=== PATIENT | female | born 1930 | race Caucasian/White ===

== ENCOUNTER 2017-03-08 20:44 | Inpatient (IN) | payer MEDICARE, OTHER ==
[~2017-03-08] VITALS: Ht 165.1 cm; Wt 78.0 kg
[~2017-03-08 20:44] MED LIST: BIMA2.5D5 EACHEYE; CLOP75TA2 PO; FLUO10TA PO; FURO40TA5 PO; LORA0.5T PO; LOSA25TA13 PO; METF500T4 PO; MINO2.5T PO; SIMV80TA5 PO; SPIR25TA4 PO; SULF1TAB48 PO; TRAZ-144 PO
--- NOTE | 2017-03-08 20:44 | NUR ---
TO BED 1 BIB PARAMEDICS C/O POSSIBLE DRUG OVERDOSE. PT WAS GIVEN NARCAN BY EMS INVENTORY CONTROL SUPERVISOR. PT CONFUSED AAOX2 NO ACUTE DISTRESS NOTED, RESP EVEN AND UNLABORED. PLACE PT ON CARDIAC MONITORING, CONTINUOUS POX, O2@2L/NC. PENDING ER MD CAPONE.
[2017-03-08] MEDS ORDERED: IV NS 0.9% 500 ML BAG IV ONE (21:00)
[2017-03-08] MEDS ORDERED: ONDANSETRON HCL/PF 4 MG/2 ML VIAL ONE ×2 (21:03→21:25)
--- NOTE | 2017-03-08 21:06 | NUR ---
SKIN INSTALLER AT BEDSIDE FOR BLOOD DRAW.
[2017-03-08 21:16] LABS: BASOPHILS % (AUTO) 0.2 % (0.0-2.0); EOSINOPHILS # (AUTO) 0.1 /CMM (0.0-0.7); EOSINOPHILS % (AUTO) 0.8 % (0.0-6.0); HEMATOCRIT 34 % (33-45); HEMOGLOBIN 11.4 g/dL (11.5-14.8); LYMPHOCYTES # (AUTO) 1.5 /CMM (0.8-4.8); LYMPHOCYTES % (AUTO) 16.4 % (20.0-44.0); MEAN CORPUSCULAR HEMOGLOBIN 30 PG (26.0-33.0); MEAN CORPUSCULAR HGB CONC 34 g/dl (31.0-36.0); MEAN CORPUSCULAR VOLUME 89 fL (82-100); MONOCYTES # (AUTO) 0.7 /CMM (0.1-1.30); NEUTROPHILS # (AUTO) 6.7 /CMM (1.8-8.9); NEUTROPHILS % (AUTO) 74.6 % (43.0-81.0); PLATELET COUNT (AUTO) 248 /CMM (150-450); RDW COEFFICIENT OF VARIATION 14.9 (11.5-15.0)
--- NOTE | 2017-03-08 21:26 | NUR ---
NOTED PT VOMITING, ER MD MADE AWARE WITH ORDERS RECEIVED. WILL CARRY OUT ORDERS.
--- NOTE | 2017-03-08 21:29 | NUR ---
PT MEDICATED BY RN PER ER MD ORDER.
[2017-03-08 21:30] LABS: CALCIUM, SERUM 10.2 mg/dL (8.5-10.1); CARBON DIOXIDE 22 mmol/L (21-32); CHLORIDE 105 mmol/L (98-107); CREATININE 1.9 mg/dL (0.6-1.3); GLUCOSE 235 mg/dL (74-106); INR 1.06 (0.87-1.13); POTASSIUM 4.7 mmol/L (3.5-5.1); SODIUM SERUM 139 mmol/L (136-145); UREA NITROGEN, BLOOD 62 mg/dL (7-18)
[2017-03-08] MEDS ORDERED: ONDANSETRON HCL/PF - ER 4 MG/2 ML VIAL IV ONE ×2 (21:30)
--- NOTE | 2017-03-08 21:30 | NUR ---
PT TRANSPORTED TO RADIOLOGY FOR CT HEAD.
[2017-03-08 21:35] LABS: ALANINE AMINOTRANSFERASE 10 U/L (12-78); ALBUMIN 3.5 g/dL (3.4-5.0); ALKALINE PHOSPHATASE 86 U/L (46-116); ASPARTATE AMINOTRANSFERASE 11 U/L (15-37); BILIRUBIN,DIRECT 0.1 mg/dL (0.0-0.2); BILIRUBIN,TOTAL 0.3 mg/dL (0.2-1.0); TOTAL PROTEIN, SERUM 7.5 g/dL (6.4-8.2)
--- NOTE | 2017-03-08 21:41 | NUR ---
PT BACK FROM RADIOLOGY. PENDING CT HEAD RESULT.
[2017-03-08 22:01] LABS: TROPONIN I < 0.017 ng/mL (0.00-0.056)
--- NOTE | 2017-03-08 22:30 | NUR ---
CALLED [employer]UNDR[employer] W[employer]ER FOR TELE BED
--- NOTE | 2017-03-08 22:32 | NUR ---
TELE 322-2
[2017-03-08 22:38] LABS: APPEARANCE,URINE SL CLOUDY (CLEAR); BILIRUBIN,URINE NEGATIVE (NEGATIVE); BLOOD, URINE NEGATIVE Ery/uL (NEGATIVE); COLOR,URINE YELLOW (YELLOW); KETONES,URINE NEGATIVE (NEGATIVE); LEUKOCYTE ESTERASE ,URINE 1+ (NEGATIVE); NITRITE, URINE NEGATIVE (NEGATIVE); PROTEIN,URINE NEGATIVE (NEGATIVE); UGLUCOSE NEGATIVE (NEGATIVE); UROBILINOGEN,URINE 0.2 EU/dL (0.2)
[2017-03-08 22:45] LABS: BACTERIA,URINE Moderate /HPF (None Seen); RBC,URINE NONE SEEN /HPF (0-2); SQUAMOUS EPITHELIAL CELL,UR Few /HPF (None Seen)
--- NOTE | 2017-03-08 22:53 | NUR ---
REPORT CALLED TO ADULT LIVE IN [facility]. PENDING HOSPITAL ADMISSION.
[2017-03-08 22:54] LABS: THYROID STIMULATING HORMONE 5.907 uIU/mL (0.358-3.74)
--- NOTE | 2017-03-08 23:20 | NUR ---
TELE/RN RECEIVE PATIENT FROM [facility]. [facility] ACCOMPANIED BY FAMILY MEMBERS. PATIENT IS SO LETHARGIC, NON VERBALLY RESPONSIVE, BUT ABLE TO OPEN EYES , O2 SAT 77-83 ON 2 L OF O2, APPLIED SIMPLE MASK AT 7L O2 WITH SAT 98%. PATIENT UNABLE TO GIVE HISTORY DUE TO CONDITION. SON AND DAUGHTER IN LAW PROVIDED PERTINENT INFORMATIONS. PLAN OF CARE DISCUSSED WITH THE FAMILY MEMBERS, VERBALIZED UNDERSTANDING AND AGREEMENT. CLEANED PATIENT, PHYSICAL ASSESSMENT WAS DONE, PHOTOS TAKEN. MADE COMFORTABLE. WILL MONITOR CLOSELY.
[2017-03-08 23:25] VITALS: BP 126/68
[2017-03-09] VITALS (7 sets, daily range): BP systolic 87–149; BP diastolic 46–83
--- NOTE | 2017-03-09 00:33 | NUR ---
TELE/RN CREDIT RATING INSPECTOR NEFTALY IS HERE, INFORMED HER ABOUT PATIENT CONDITION AT THIS TIME, ( NOT VERBALLY RESPONSIVE, WOULD SOMETIMES OPENS EYES, O2 SAT 77-83% ON 2L O2, AND PUT HER AT 7L SIMPLE MASK, WITH O2 SAT 98%). PER NEFTALY, SHE WILL SEE HER.
--- NOTE | 2017-03-09 00:52 | NUR ---
TELE/PRISCILLA HIGGINBOTHAM NP, AT BEDSIDE. ORDERED, STAT ABG AND CONTINUOUS PULSE OX. CARRIED OUT.
[2017-03-09] MEDS ORDERED: IPRATROPIUM NEB FS 0.5 MG/2.5 ML AMPUL.NEB NEB PRN (01:00)
[2017-03-09] MEDS ORDERED: DEXTROSE 50%-WATER 50 ML DISP.SYRIN IV PRN (01:00)
[2017-03-09] MEDS ORDERED: ALBUTEROL FS 2.5 MG/0.5 ML VIAL.NEB NEB PRN (01:00)
[2017-03-09 01:14] LABS: ABG BASE EXCESS -2.9 mmol/L; ABG OXYGEN SATURATION 98.6 % (92.0-98.5); ABG PCO2 46.1 mmHg (35.0-45.0); ABG PH 7.321 (7.350-7.450); ABG PO2 230.5 mmHg (75.0-100.0); AaDO2 37.9 mmHg; COHb 0.3 % (0.5-1.5); MetHb 0.5 % (0.0-1.5); O2Hb 97.8 % (94.0-97.0); SITE, ABG Right Radial; VENT MODE, BG simple mask
[2017-03-09] MEDS ORDERED: CEFTRIAXONE 1 G VIAL ONE (01:51)
[2017-03-09] MEDS: IV NS 0.9% 1,000 ML IV PRN ×2 (01:58→18:32)
[2017-03-09] MEDS: CEFTRIAXONE 1 G in IV D5W 50 ML IV SCH (01:59)
--- NOTE | 2017-03-09 06:08 | NUR ---
TELE/SNACK STEWARD RN, ED, CAME TO ASSESS THE PATIENT PER THE CHARGE NURSE REQUEST. DURING ASSESSMENT, PATIENT BECAME MORE ALERT AND RESPONSIVE, AND SPOKE FOR THE FIRST TIME SINCE ADMISSION. WILL CONTINUE TO MONITOR.
--- NOTE | 2017-03-09 06:54 | NUR ---
TELE/RN SLEEPING, MORE RESPONSIVE, NO DISTRESS NOTED, CALL LIGHT IN REACH. WILL CONTINUE TO MONITOR.
--- NOTE | 2017-03-09 07:15 | NUR ---
RN INITIAL NOTES REPORT RECEIVED AT THE BEDSIDE. PATIENT IS SLEEPING. NO SOB OR DISTRESS NOTED AT THIS TIME. PATIENT DOES NOT APPEAR TO BE IN PAIN, NO FACIAL GRIMACE NOTED. WAS ABLE TO AROUSE PATIENT WITH LIGHT SHAKING AND LOUD VOICE. ONLY RESPONSE WAS PATIENT OPENED EYES AND SAID "STOP". BED IN A LOW POSITION, CALL LIGHT WITHIN PATIENT REACH. WILL CONTINUE TO MONITOR. Addendum: 03/09/17 at 0736 by PHIL NATHAN RN SR ON HEART MONITOR.
[2017-03-09] MEDS: BLOOD SUGAR DIAGNOSTIC 1 EACH STRIP IN SCH ×4 (08:43→21:01)
[2017-03-09] MEDS: INSULIN REGULAR, HUMAN 100 UNIT/ML 3 ML VIAL SQ PRN ×2 (08:44→17:12)
[2017-03-09] MEDS: HEPARIN SODIUM, PORCINE 5000 UNITS/1 ML VIAL SQ SCH ×2 (08:45→21:00)
[2017-03-09] MEDS: LOSARTAN POTASSIUM 25 MG TABLET PO SCH (09:00)
[2017-03-09] MEDS: FLUOXETINE HCL 20 MG CAPSULE PO SCH (09:00)
[2017-03-09] MEDS: SPIRONOLACTONE 25 MG TABLET PO SCH (09:00)
[2017-03-09] MEDS ORDERED: FLU VACC QS 2017-18(36MOS+)/PF 0.5 ML DISP.SYRIN IM ONE (09:00)
[2017-03-09] MEDS: MINOXIDIL (2.5MG) 2.5 MG TABLET PO SCH ×3 (09:00→17:00)
[2017-03-09] MEDS: CLOPIDOGREL BISULFATE 75 MG TABLET PO SCH (09:00)
[2017-03-09] MEDS ORDERED: BIMATOPROST 2.5 ML DROPS OP SCH (09:00)
[2017-03-09] MEDS: METFORMIN 500 MG TABLET PO SCH ×2 (09:00→17:00)
--- NOTE | 2017-03-09 09:00 | NUR ---
RN NOTES FLU SHOT GIVEN PER ORDER. UPDATED IN MEDICAL RECORD
--- NOTE | 2017-03-09 09:25 | NUR ---
RN NOTES AFTER TURNING PATIENT TO CLEAN HER AND REPOSITION, PATIENT RESPONDED SLIGHTLY. SHE OPENED HER EYES AND STATES "IT HURTS." ATTEMPTED TO GET MORE OUT OF THE PATIENT BY ASKING QUESTIONS, BUT PATIENT DOES NOT RESPOND. MD IN ROOM AND ASSESSED PATIENT. MD TO PLACE ORDERS. PT UNABLE TO TAKE ORAL MEDICATIONS SHE IS TOO LETHARGIC TO SWALLOW.
[2017-03-09 11:40] LABS: CALCIUM, SERUM 9.6 mg/dL (8.5-10.1); CARBON DIOXIDE 29 mmol/L (21-32); CHLORIDE 110 mmol/L (98-107); CREATININE 1.7 mg/dL (0.6-1.3); GLUCOSE 136 mg/dL (74-106); POTASSIUM 5.2 mmol/L (3.5-5.1); SODIUM SERUM 143 mmol/L (136-145); UREA NITROGEN, BLOOD 54 mg/dL (7-18)
--- NOTE | 2017-03-09 16:16 | NUR ---
MS RN NOTES REPORT RECEIVED FROM PHIL/PRISCILLA FOR CONTINUITY OF CARE. PATIENT IN BED, IS SLEEPING, ABLE TO AROUSE WITH LIGHT SHAKING AND LOUD VOICE. NO FACIAL GRIMACE NOTED. ABLE TO OPENED EYES. BED IN A LOW POSITION, CALL LIGHT WITHIN PATIENT REACH. WILL CONTINUE TO MONITOR.
--- NOTE | 2017-03-09 16:17 | NUR ---
RN NOTES PATIENT STILL LETHARGIC, BUT BEGINNING TO RESPOND TO VERBAL COMMANDS. NO SOB OR DISTRESS NOTED AT THIS TIME. PATIENT DOES NOT APPEAR TO BE IN PAIN, NO FACIAL GRIMACE. CAROTID DUPLEX RESULTS STILL PENDING. ENDORSED TO PRISCILLA PRIEST FOR JULIO C.
--- NOTE | 2017-03-09 17:14 | NUR ---
BS 143MG/DL, INSULIN DOSE NON ADMINISTERED, PATIENT TOO SLEEPY AND NOT EATING HER MEALS SINCE MORNING. MD IS AWARE. ON IVF INFUSING AT 60ML/HR, TOLERATING WELL, NO SOB. WILL CONT TO MONITOR.
[2017-03-09] MEDS: ATORVASTATIN 40 MG TABLET PO SCH (17:46)
--- NOTE | 2017-03-09 18:48 | NUR ---
RN CLOSING NOTES PATIENT IN BED, STILL APPEARS LETHARGIC BUT NOW ABLE TO RESPOND VERBALLY. PER DROPPER TANK STORAGE REPORT PATIENT HAD LATE DINNER AND CONSUMED 25% OF HER MEALS WITH TOTAL ASSIST. CAROTID DUPLEX RESULT PENDING. BED LOW POSITION AND CALL LIGHT WITHIN REACH. WILL ENDORSE TO BANK MANAGER RN FOR CONTINUITY OF CARE.
--- NOTE | 2017-03-09 19:35 | NUR ---
MS RN INITIAL NOTES PT IS IN BED AWAKE AND ALERT, SPEECH IS SLURRED AND PT IS MUMBLING TO HERSELF. NEURO CHECKS TO BE DONE. RHONCHI NOTED ON AUSCULTATION, PRN BREATHING TX TO BE GIVEN. NO SIGNS OF SOB OR DISTRESS. IV ACCESS IS INTACT AND INFUSING. BED IS IN LOW AND LOCKED POSITION, BED ALARM IS ON. WILL CONTINUE TO MONITOR.
[2017-03-09] MEDS: LATANOPROST EYE DROP 0.005% 2.5 ML BOTTLE EACHEYE SCH (21:01)
[2017-03-09] MEDS ORDERED: SIMVASTATIN 40 MG TABLET PO SCH (22:00)
[2017-03-10] MEDS: CEFTRIAXONE 1 G in IV D5W 50 ML IV SCH (00:03)
[2017-03-10] MEDS: BLOOD SUGAR DIAGNOSTIC 1 EACH STRIP IN SCH ×4 (05:52→21:12)
--- NOTE | 2017-03-10 06:20 | NUR ---
MS RN CLOSING NOTES PT IS MORE ALERT AND AWAKE THAN THE BEGINNING OF MY SHIFT. SHE IS RESPONSIVE TO LIGHT TOUCH. SPEECH IS SLURRED AND PATIENT IS CONFUSED. IV ACCESS IS INTACT AND PATENT. NO SIGNS OF SOB OR DISTRESS. BREATHING EVENLY AND UNLABORED ON 2L NC. BED IS IN LOW AND LOCKED POSITION, SIDERAILS ARE UP, BED ALARM IS ON. ALL NEEDS WERE ANTICIPATED AND MET. WILL ENDORSE TO DAY SHIFT.
--- NOTE | 2017-03-10 07:10 | NUR ---
MS RN NOTES RECEIVED PATIENT IN BED, AWAKE. DISORIENTED AND WITH CONFUSION. ON OXYGEN AT 2LPM VIA NC, PATIENT CONSTANTLY REMOVING NC, REORIENT PATIENT. BED LOW POSITION SIDE RAILS UP X2. IVF NS INFUSING AT 60ML/HR. CALL LIGHT WITHIN REACH. WILL CONT TO MONITOR.
[2017-03-10 07:22] LABS: BASOPHILS % (AUTO) 0.4 % (0.0-2.0); EOSINOPHILS % (AUTO) 0.5 % (0.0-6.0); HEMATOCRIT 30 % (33-45); LYMPHOCYTES # (AUTO) 1.3 /CMM (0.8-4.8); LYMPHOCYTES % (AUTO) 18.9 % (20.0-44.0); MEAN CORPUSCULAR HEMOGLOBIN 30 PG (26.0-33.0); MEAN CORPUSCULAR HGB CONC 34 g/dl (31.0-36.0); MEAN CORPUSCULAR VOLUME 89 fL (82-100); MONOCYTES # (AUTO) 0.7 /CMM (0.1-1.30); MONOCYTES % (AUTO) 10.7 % (2.0-12.0); NEUTROPHILS # (AUTO) 4.7 /CMM (1.8-8.9); NEUTROPHILS % (AUTO) 69.5 % (43.0-81.0); PLATELET COUNT (AUTO) 223 /CMM (150-450); RDW COEFFICIENT OF VARIATION 15.9 (11.5-15.0); RED BLOOD CELL COUNT(AUTO) 3.35 MIL/uL (4.0-5.2); WHITE BLOOD COUNT (AUTO) 6.7 K/uL (4.3-11.0)
[2017-03-10 07:34] LABS: CALCIUM, SERUM 9.8 mg/dL (8.5-10.1); CARBON DIOXIDE 26 mmol/L (21-32); CHLORIDE 112 mmol/L (98-107); CREATININE 1.4 mg/dL (0.6-1.3); GLUCOSE 144 mg/dL (74-106); MAGNESIUM 2.2 mg/dL (1.8-2.4); PHOSPHORUS 3.6 mg/dL (2.5-4.9); SODIUM SERUM 145 mmol/L (136-145); UREA NITROGEN, BLOOD 41 mg/dL (7-18)
[2017-03-10 08:00] VITALS: BP 143/69
[2017-03-10] MEDS: CLOPIDOGREL BISULFATE 75 MG TABLET PO SCH (08:41)
[2017-03-10] MEDS: METFORMIN 500 MG TABLET PO SCH ×2 (08:41→17:03)
[2017-03-10] MEDS: FLUOXETINE HCL 20 MG CAPSULE PO SCH (08:42)
[2017-03-10] MEDS: MINOXIDIL (2.5MG) 2.5 MG TABLET PO SCH ×3 (08:42→16:36)
[2017-03-10] MEDS: SPIRONOLACTONE 25 MG TABLET PO SCH (08:42)
[2017-03-10] MEDS: LOSARTAN POTASSIUM 25 MG TABLET PO SCH (08:42)
[2017-03-10] MEDS: HEPARIN SODIUM, PORCINE 5000 UNITS/1 ML VIAL SQ SCH ×2 (08:45→20:57)
--- NOTE | 2017-03-10 10:24 | NUR ---
PATIENT APPEARS ANXIOUS AND AGITATED, CONSTANTLY REMOVING NC AND SLIDING HERSELF TO THE SIDE OF THE BED, REORIENT FREQUENTLY, PLACE BED IN LOWEST POSITION AND SIDE RAILS UP X2. CALL LIGHT WITHIN REACH. WILL CONT TO MONITOR.
--- NOTE | 2017-03-10 12:55 | NUR ---
WOUND CARE CONSULT: PT PRESENTS WITH SACRAL SCARRING AND LOWER BACK SCARRING. PT IS INCONTINENT. PT TO BE TURNED AND REPOSITIONED EVERY 2 HRS PT CONDITION PERMITS, HEELS FLOATED. ALL SKIN PROTECTION MEASURES IN PLACE AND DISCUSSED WITH NURSING STAFF. PT ON [employer] COMFORT GEL MATTRESS. WILL SEE PRN. KELLEY IN AGREEMENT WITH PLAN OF CARE. Addendum: 03/10/17 at 1257 by CUBA JIMENEZ WNDNU Amended: Links added.
[2017-03-10] MEDS ORDERED: Z GUARD REMEDY 2 OZ OINT TP PRN (13:00)
[2017-03-10] MEDS: INSULIN REGULAR, HUMAN 100 UNIT/ML 3 ML VIAL SQ PRN ×3 (13:40→21:14)
[2017-03-10] MEDS: Z GUARD REMEDY 2 OZ OINT TP SCH (13:42)
--- NOTE | 2017-03-10 13:43 | NUR ---
BS 212MG/DL. INSULIN DOSE NON ADMINISTERED, PATIENT HAS POOR APPETITE.
[2017-03-10] MEDS: LORAZEPAM 0.5 MG TABLET PO PRN (14:21)
--- NOTE | 2017-03-10 14:24 | NUR ---
PATIENT WITH EPISODE OF INTERMITTENT AGITATION. APPEARS ANXIOUS AND CONSTANTLY SLIDING HERSELF AT THE FOOT OF THE BED. GIVEN ATIVAN 0.5MG PO PRN FOR ANXIETY, WILL REASSESS.
--- NOTE | 2017-03-10 15:10 | NUR ---
PATIENT HAS POOR APPETITE, BOOST GLUCOSE CONTROL PER DIETARY RECOMMENDATION ORDERED.
--- NOTE | 2017-03-10 15:46 | NUR ---
MRSA NARES POSITIVE, PATIENT WILL BE PLACE ON CONTACT ISOLATION ORDERED.
--- NOTE | 2017-03-10 15:57 | NUR ---
IV LINE DISLODGED, APPLIED GAUZED TO IV SITE. PATIENT REMOVED IV LINE UNAWARE DUE TO CONFUSION. CHARGE NURSE INFORMED, WILL PROVIDE 1:1 SITTER.
[2017-03-10 16:00] VITALS: BP 142/77
[2017-03-10] MEDS: MUPIROCIN OINT 2% 22 GM TUBE SCH ×2 (17:03→20:55)
[2017-03-10] MEDS: IV NS 0.9% 1,000 ML IV PRN (17:07)
[2017-03-10] MEDS: ATORVASTATIN 40 MG TABLET PO SCH (17:25)
[2017-03-10] MEDS: BOOST GLUCOSE CONTROL VANILLA 237 ML BOX PO SCH (18:12)
--- NOTE | 2017-03-10 19:29 | NUR ---
MS RN CLOSING NOTES PATIENT IN BED, AWAKE, WITH CONFUSION. ON ANTIBIOTIC WITH NO ADVERSE SIDE EFFECT, AFEBRILE DURING THE SHIFT. IVF NS INFUSING AT 60ML/HR, TOLERATING WELL. NO SOB. CALL LIGHT WITHIN REACH. 1:1 SITTER AT THE BEDSIDE. ENDORSED TO PARTS CATALOGUER RN FOR CONTINUITY OF CARE.
--- NOTE | 2017-03-10 20:00 | NUR ---
RN NOTES PATIENT ALERT AND ORIENTED X2 WITH EPISODES OF CONFUSION AND PULLING OUT IV. VS STABLE. RESPIRATIONS EVEN AND UNLABORED. NO RESPIRATORY DISTRESS NOTED. NO C/O PAIN AT THIS TIME. CALM AND COOPERATIVE. IV ACCESS LEFT AC INFILTRATED. IV INFUSION STOPPED. EXTREMITIES ELEVATED. ICE APPLIED. SITTER PRESENT AT BED SIDE FOR SAFETY. BED IN LOW POSITION. SIDE RAILS X2. CALL LIGHT WITHIN EASY REACH. WILL RESTART IV LINE. CONTINUE TO MONITOR PATIENT.
[2017-03-10] MEDS: LATANOPROST EYE DROP 0.005% 2.5 ML BOTTLE EACHEYE SCH (21:05)
--- NOTE | 2017-03-10 22:26 | NUR ---
RN NOTES NEW IV LINE RESTARTED ON RIGHT HAND USING 22 GAUGE NEEDLE. PROCEDURE TOLERATED WELL. GOOD BACKFLOW. IV FLUIDS RESTARTED.
[2017-03-11] MEDS: LORAZEPAM 0.5 MG TABLET PO PRN ×2 (00:23→21:37)
[2017-03-11] MEDS: CEFTRIAXONE 1 G in IV D5W 50 ML IV SCH (00:23)
--- NOTE | 2017-03-11 06:47 | NUR ---
RN CLOSING NOTES PATIENT IS IN BED ALERT AND ORIENTED X2 WITH EPISODES OF CONFUSION. VS STABLE. RESPIRATIONS EVEN AND UNLABORED. NO RESPIRATORY DISTRESS NOTED. NO C/O PAIN AT THIS TIME. CALM AND COOPERATIVE. IV ACCESS ON RIGHT HAND PATENT AND INTACT. SITTER PRESENT AT BED SIDE FOR SAFETY. ALL MEDICATIONS GIVEN PER MD ORDER. BED IN LOW POSITION. SIDE RAILS X2. CALL LIGHT WITHIN EASY REACH. WILL ENDORSE TO RN DAY SHIFT FOR CONTINUITY OF CARE.
[2017-03-11] MEDS: BLOOD SUGAR DIAGNOSTIC 1 EACH STRIP IN SCH ×4 (07:35→21:26)
[2017-03-11] MEDS: INSULIN REGULAR, HUMAN 100 UNIT/ML 3 ML VIAL SQ PRN ×2 (07:37→21:36)
--- NOTE | 2017-03-11 07:41 | NUR ---
MS RN OPENING NOTE PATIENT IS ALERT AND ORIENTED x2. NO PAIN AT THIS TIME. NO SOB OR DISTRESS NOTED. ON 2L/MIN OF OXYGEN TOLERATING WELL. CALL LIGHT WITHIN REACH. SAFETY MEASURES IMPLEMENTED. ABLE TO COMMUNICATE NEEDS. SITTER AT BEDSIDE, PATIENT TRYING TO REMOVE LINES. ON 2 GRAM SODIUM DIET. IV ON RIGHT HAND INTACT AND PATENT NO REDNESS OR SWELLING PRESENT, IVF FLUIDS RUNNING AT THIS TIME AT 60 ML/HR, TOLERATING WELL. BLOOD SUGARS TO BE MONITORED THROUGHOUT SHIFT. LABS THIS MORNING. PER LOCAL DELIVERY DRIVER NURSE, DO NOT GIVE INSULIN IF LESS THAN 250. Q4H NEURO CHECKS AND HOLD BERNADINE SEDATING MEDICATIONS. WILL CONTINUE TO MONITOR PATIENT THROUGHOUT SHIFT
[2017-03-11 08:00] VITALS: BP 159/80
[2017-03-11] MEDS: BOOST GLUCOSE CONTROL VANILLA 237 ML BOX PO SCH (08:23)
[2017-03-11] MEDS: MUPIROCIN OINT 2% 22 GM TUBE SCH ×2 (08:24→21:25)
[2017-03-11] MEDS: METFORMIN 500 MG TABLET PO SCH ×2 (08:25→16:55)
[2017-03-11] MEDS: MINOXIDIL (2.5MG) 2.5 MG TABLET PO SCH ×3 (08:25→16:55)
[2017-03-11] MEDS: CLOPIDOGREL BISULFATE 75 MG TABLET PO SCH (08:26)
[2017-03-11] MEDS: FLUOXETINE HCL 20 MG CAPSULE PO SCH (08:26)
[2017-03-11] MEDS: SPIRONOLACTONE 25 MG TABLET PO SCH (08:26)
[2017-03-11] MEDS: Z GUARD REMEDY 2 OZ OINT TP SCH (08:26)
[2017-03-11] MEDS: LOSARTAN POTASSIUM 25 MG TABLET PO SCH (08:26)
[2017-03-11] MEDS: HEPARIN SODIUM, PORCINE 5000 UNITS/1 ML VIAL SQ SCH ×2 (08:29→21:26)
[2017-03-11] MEDS: IV NS 0.9% 1,000 ML IV PRN (11:54)
--- NOTE | 2017-03-11 12:28 | NUR ---
MS RN NOTE BS-153 INSULIN NON ADMINISTERED PATIENT HAS POOR PO INTAKE. ENCOURAGING MEALS AND FLUID INTAKE. WILL CONTINUE TO MONITOR
--- NOTE | 2017-03-11 13:00 | NUR ---
MS RN NOTE HELD 1300 MEDICATION PATIENT TOO LETHARGIC, UNABLE TO TAKE PO AT THIS TIME. WILL CONTINUE TO MONITOR
[2017-03-11 16:00] VITALS: BP 151/62
[2017-03-11] MEDS: ATORVASTATIN 40 MG TABLET PO SCH (18:28)
--- NOTE | 2017-03-11 18:35 | NUR ---
MS RN CLOSING NOTE PATIENT IS ALERT AND ORIENTED x2. NO PAIN AT THIS TIME. SAFETY MEASURES IMPLEMENTED. ABLE TO COMMUNICATE NEEDS. NO SOB OR DISTRESS NOTED. ON 2L/MIN OF OXYGEN VIA NASAL CANNULA. TOLERATING WELL. SACRAL REDNESS, Z-GUARD IMPLEMENTED. TURNED AND REPOSITIONED Q2H. 2 GRAM SODIUM DIET, PATIENT HAS POOR PO INTAKE, ENCOURAGING FOOD AND FLUIDS. RIGHT HAND INTACT AND PATENT NO REDNESS OR SWELLING NOTED. IV FLUIDS RUNNING AT 60 ML/HR TOLERATING WELL./ BLOOD SUGAR MONITORED, LAST BS-205 NO INSULIN TO BE ADMINISTERED DUE TO POOR PO INTAKE. AWAITING DIETARY CONSULT. HOLD ANY SEDATING MEDICATIONS. Q4H NEURO CHECKS,. WILL ENDORSE TO POSTAL INSPECTOR NURSE FOR JULIO C Addendum: 03/11/17 at 1839 by VANESSA HYDE RN SITTER AT BEDSIDE FOR SAFETY.
--- NOTE | 2017-03-11 19:00 | NUR ---
MS RN OPENING NOTES PATIENT RESTING IN BED A/O X 2, NO ACUTE DISTRESS NOTED. BREATHING EVEN AND UNLABORED, NO SOB NOTED. SAFETY MEASURES IN PLACE, BED LOCKED AND IN LOWEST POSITION, CALL LIGHT IN REACH. WILL CONTINUE TO MONITOR.
[2017-03-11 20:00] VITALS: BP 148/90
[2017-03-11] MEDS: LATANOPROST EYE DROP 0.005% 2.5 ML BOTTLE EACHEYE SCH (21:25)
[2017-03-12] MEDS: CEFTRIAXONE 1 G in IV D5W 50 ML IV SCH (01:24)
[2017-03-12] MEDS: IV NS 0.9% 1,000 ML IV PRN (05:29)
[2017-03-12] MEDS: BLOOD SUGAR DIAGNOSTIC 1 EACH STRIP IN SCH ×3 (05:39→16:49)
[2017-03-12] MEDS: INSULIN REGULAR, HUMAN 100 UNIT/ML 3 ML VIAL SQ PRN ×2 (05:47→16:56)
--- NOTE | 2017-03-12 06:28 | NUR ---
MS RN CLOSING NOTES PATIENT COMFORTABLY ASLEEP AND EASILY AWAKEN. HEAD OF BED ELEVATED FOR BETTER LUNG EXPANSION ON 2LPM VIA NC 02 SAT AT 98% IV SITE NO S/S OF INFILTRATED PATENT AND FLUSHED, ASSISTED REPOSITIONED EVERY 2 HOURS FOR COMFORT AND SKIN MGT. 1:1 SITTER, MAINTAINS ON CONTACT ISOLATION. RESPIRATIONS EVEN AND UNLABORED. NO S/S OF ACUTE DISTRESS, AFEBRILE. NURSING CARE RENDERED, NEEDS ATTENDED AND ANTICIPATED, KEPT CLEAN AND DRY AND COMFORTABLE, GOOD SKIN CARE PROVIDED. FREQUENT VISUAL CHECK DONE FOR SAFETY EVERY 2 HOURS. SAFE HAZARD FREE ENVIRONMENT PROVIDED. CALL LIGHT WITHIN EASY TO REACH, ON LOW BED AT ALL TIMES TO ENSURE SAFETY, WILL ENDORSE TO THE NEXT SHIFT CONTINUE PLAN OF CARE. ON ATB WITH NO A/R NOTED. NO COMPLAINS OF PAIN
--- NOTE | 2017-03-12 08:00 | NUR ---
MS RN OPENING NOTE PATIENT IS ALERT AND ORIENTED X2. NO PAIN AT THIS TIME. NO SOB OR DISTRESS NOTED. CALL LIGHT WITHIN REACH. SAFETY MEASURES IMPLEMENTED. ABLE TO COMMUNICATE NEEDS. SITTER AT BEDSIDE FOR SAFETY. IV ON RIGHT HAND INTACT AND PATENT NO REDNESS OR SWELLING NOTED. ON 2L/MIN OF OXYGEN VIA NASAL CANNULA. WILL CONTINUE TO MONITOR
--- NOTE | 2017-03-12 08:15 | NUR ---
TEXTED DR. MCKNIGHT FOR MRI APPROVAL.
--- NOTE | 2017-03-12 08:16 | NUR ---
DR. MCKNIGHT TEXTED BACK, ON HOLD FOR NOW HE WILL LET US KNOW.
[2017-03-12] MEDS: MINOXIDIL (2.5MG) 2.5 MG TABLET PO SCH ×3 (08:45→16:53)
[2017-03-12] MEDS: SPIRONOLACTONE 25 MG TABLET PO SCH (08:45)
[2017-03-12] MEDS: BOOST GLUCOSE CONTROL VANILLA 237 ML BOX PO SCH (08:45)
[2017-03-12] MEDS: LOSARTAN POTASSIUM 25 MG TABLET PO SCH (08:45)
[2017-03-12] MEDS: METFORMIN 500 MG TABLET PO SCH ×2 (08:45→16:49)
[2017-03-12] MEDS: CLOPIDOGREL BISULFATE 75 MG TABLET PO SCH (08:45)
[2017-03-12] MEDS: MUPIROCIN OINT 2% 22 GM TUBE SCH (08:49)
[2017-03-12] MEDS: FLUOXETINE HCL 20 MG CAPSULE PO SCH (08:49)
[2017-03-12] MEDS: Z GUARD REMEDY 2 OZ OINT TP SCH (08:49)
[2017-03-12] MEDS: HEPARIN SODIUM, PORCINE 5000 UNITS/1 ML VIAL SQ SCH (08:53)
[2017-03-12 16:53] VITALS: BP 162/102
[2017-03-12] MEDS: ATORVASTATIN 40 MG TABLET PO SCH (17:00)
--- NOTE | 2017-03-12 18:56 | NUR ---
MS RN CLOSING NOTE PATIENT IS ALERT AND ORIENTED x2. NO PAIN AT THIS TIME. NO SOB OR DISTRESS NOTED. ON 2L/MIN OF OXYGEN VIA NASAL CANNULA TOLERATING WELL. ABLE TO COMMUNICATE NEEDS. IV ON RIGHT HAND INTACT AND PATENT. PER RN TUB RIDER AT [facility] TO KEEP IV IN. GAVE REPORT TO PRISCILLA US TUB RIDER. GAVE ALL DISCHARGE INSTRUCTIONS TO [facility] AND [facility]. LEFT MESSAGE FOR SON KAHLIL MAURICIOBERG ABOUT PATIENT TRANSFERRING BACK TO [facility]. ALL NEW MEDICATIONS GIVEN TO RN TUB RIDER, ALL BELONGINGS AT BEDSIDE AND ACCOUNTED FOR. ALL DUE MEDICATIONS GIVEN ORDERED. ALL SKIN PICTURES DOCUMENTED. WILL ENDORSE TO PURCHASING EXPEDITOR NURSE
--- NOTE | 2017-03-12 20:00 | NUR ---
MS RN NOTES AMBULANCE CAME IN TO [facility] FISHING TOOL OPERATOR PT. AWAKE & RESPONSIVE. NOT IN ANY DISTRESS. NO SOB NOTED. DENIES ANY PAIN OR DISCOMFORT AT THIS TIME. WITH IV-HL PATENT & INTACT. BELONGINGS SENT WITH PT. REPORT GIVEN BY ABBY WELLS TO [facility]. VSS. AFEBRILE. EXITCARE DONE. REPORT GIVEN TO PARAMEDICS FOR CONTINUITY OF CARE.
== END 2017-03-12 20:10 | DRG 100 ==
LOC: ER 20:45 → TELE 22:44 → MED 03-09 12:12
PROVIDERS: ADMIT Nurse Practitioner Acute Care; ATTEND Nurse Practitioner Acute Care
DX: G40.909 Epilepsy, unspecified, not intractable, without status epilepticus (principal); N17.0 Acute kidney failure with tubular necrosis; G92 Toxic encephalopathy; N39.0 Urinary tract infection, site not specified; I50.32 Chronic diastolic (congestive) heart failure; I13.0 Hypertensive heart and chronic kidney disease with heart failure and stage 1 through stage 4 chronic kidney disease, or unspecified chronic kidney disease; E03.9 Hypothyroidism, unspecified; E11.22 Type 2 diabetes mellitus with diabetic chronic kidney disease; E78.5 Hyperlipidemia, unspecified; N18.3 Chronic kidney disease, stage 3 (moderate); I25.10 Atherosclerotic heart disease of native coronary artery without angina pectoris; H40.9 Unspecified glaucoma; F41.9 Anxiety disorder, unspecified; Z79.84 Long term (current) use of oral hypoglycemic drugs; Z86.73 Personal history of transient ischemic attack (TIA), and cerebral infarction without residual deficits; Z98.61 Coronary angioplasty status; E83.52 Hypercalcemia; B96.1 Klebsiella pneumoniae [K. pneumoniae] as the cause of diseases classified elsewhere; E11.65 Type 2 diabetes mellitus with hyperglycemia; F03.90 Unspecified dementia, unspecified severity, without behavioral disturbance, psychotic disturbance, mood disturbance, and anxiety
CPT/HCPCS: 36415; 36600; 70450-TC; 70551-TC; 71010-TC; 80048-TC; 80076-TC; 80305; 81000-TC; 82803-TC; 82962-TC; 83605-TC; 83735-TC; 83880; 84100-TC; 84439-TC; 84443-TC; 84484-TC; 85025-TC; 85730-TC; 87081-TC; 87086-TC; 87186-TC; 93307-TC; 93880-TC; 94760-TC; 95819-TC; 97110-TC; 97112-TC; 97530-TC; A4606; J0696; J1644; J1815; J2405; J7030; J7040; J7060; Q2036; Z7610

== ENCOUNTER 2017-04-30 15:43 | Inpatient (IN) | payer MEDICARE, OTHER ==
[~2017-04-30] VITALS: Ht 160 cm; Wt 68.0 kg
[~2017-04-30 15:43] MED LIST changes: -SULF1TAB48 PO
--- NOTE | 2017-04-30 15:44 | NUR ---
SUDEEP FROM [facility] DT ALTERED MENTAL STATUS AND SLURRED SPEECH. PATIENT RECEIVED AWAKE, HOWEVER DOES NOT RESPONSE VERBALLY AT THIS TIME. NO OBVIOUS FACIAL DROOP NOTED. PATIENT APPEARS IN NO APPARENT DISTRESS. UNKNOWN LAST KNOWN WELL. SYMPTOMS NOTICED AROUND 12PM TODAY. VSS
--- NOTE | 2017-04-30 15:45 | NUR ---
CODE STROKE INITIATED
--- NOTE | 2017-04-30 15:47 | NUR ---
Jimmy lipscomb in [facility] - 04/30/17 at 1553 by DONNAINA CODE STROKE INITATED
--- NOTE | 2017-04-30 15:48 | NUR ---
PT TO CT
--- NOTE | 2017-04-30 15:48 | NUR ---
Jimmy lipscomb in [facility] - 04/30/17 at 1553 by CHRISTIANE CODE STROKE INITIATED
--- NOTE | 2017-04-30 15:50 | NUR ---
CALLED [facility], TRANSFERRED CALL TO
--- NOTE | 2017-04-30 15:53 | NUR ---
[facility], SPOKE WITH DAISHA, AWAITING CALL BACK FROM (NEUROLOGIST)
--- NOTE | 2017-04-30 16:00 | NUR ---
PATIENT IS BACK FROM CT
[2017-04-30] MEDS ORDERED: IV NS 0.9% 250 ML IV ONE (16:01)
[2017-04-30] MEDS ORDERED: IOHEXOL-350 100 ML VIAL IV ONE (16:01)
[2017-04-30 16:07] LABS: BASOPHILS # (AUTO) 0.2 /CMM (0.0-0.2); BASOPHILS % (AUTO) 3.1 % (0.0-2.0); EOSINOPHILS # (AUTO) 0.1 /CMM (0.0-0.7); EOSINOPHILS % (AUTO) 1.6 % (0.0-6.0); HEMATOCRIT 32 % (33-45); HEMOGLOBIN 11.1 g/dL (11.5-14.8); LYMPHOCYTES # (AUTO) 1.4 /CMM (0.8-4.8); LYMPHOCYTES % (AUTO) 17.7 % (20.0-44.0); MEAN CORPUSCULAR HEMOGLOBIN 31 PG (26.0-33.0); MEAN CORPUSCULAR HGB CONC 35 g/dl (31.0-36.0); MEAN CORPUSCULAR VOLUME 89 fL (82-100); MONOCYTES # (AUTO) 0.7 /CMM (0.1-1.30); MONOCYTES % (AUTO) 9.2 % (2.0-12.0); NEUTROPHILS # (AUTO) 5.6 /CMM (1.8-8.9); NEUTROPHILS % (AUTO) 68.4 % (43.0-81.0); PLATELET COUNT (AUTO) 284 /CMM (150-450); RDW COEFFICIENT OF VARIATION 13.7 (11.5-15.0); RED BLOOD CELL COUNT(AUTO) 3.58 MIL/uL (4.0-5.2)
--- NOTE | 2017-04-30 16:16 | NUR ---
UNABLE TO DO CTA BRAIN & CAROTID, NO IV LINE. ER ORDERED MID LINE FOR PT, ER WILL CALL WHEN READY.
[2017-04-30 16:17] LABS: CALCIUM, SERUM 9.7 mg/dL (8.5-10.1); CARBON DIOXIDE 25 mmol/L (21-32); CHLORIDE 105 mmol/L (98-107); CREATININE 1.3 mg/dL (0.6-1.3); GLUCOSE 220 mg/dL (74-106); POTASSIUM 4.4 mmol/L (3.5-5.1); SODIUM SERUM 137 mmol/L (136-145); UREA NITROGEN, BLOOD 18 mg/dL (7-18)
[2017-04-30 16:21] LABS: INR 1.12 (0.87-1.13); PROTHROMBIN TIME 11.6 SECS (9.5-12.7)
[2017-04-30 16:26] LABS: TROPONIN I < 0.017 ng/mL (0.00-0.056)
--- NOTE | 2017-04-30 16:41 | NUR ---
PATIENT UNABLE TO FOLLOW SIMPLE COMMAND.
--- NOTE | 2017-04-30 16:50 | NUR ---
[facility]UR[facility]-MD HOBSON TALKING THE PT THRU ROBOT
--- NOTE | 2017-04-30 16:55 | NUR ---
MD ZENDEJAS ON PHONE WITH MD HOBSON
--- NOTE | 2017-04-30 17:09 | NUR ---
CALLED [facility], SPOKE WITH BECKY, TRANSFERRED CALL TO BAC[facility], CHARGE NURSE.
--- NOTE | 2017-04-30 17:11 | NUR ---
FAXED FACESHEET AND CT RESULT TO BECKY AT [phone]
[2017-04-30 17:53] LABS: APPEARANCE,URINE Cloudy (CLEAR); BILIRUBIN,URINE Negative (NEGATIVE); BLOOD, URINE Trace-intact Ery/uL (NEGATIVE); COLOR,URINE Yellow (YELLOW); KETONES,URINE Negative (NEGATIVE); LEUKOCYTE ESTERASE ,URINE Negative (NEGATIVE); NITRITE, URINE Negative (NEGATIVE); PH,URINE 5.5 (5.0-8.0); PROTEIN,URINE Negative (NEGATIVE); UGLUCOSE Negative (NEGATIVE)
--- NOTE | 2017-04-30 17:55 | NUR ---
CALLED NURSING SUP. FOR [facility] BED
--- NOTE | 2017-04-30 18:10 | NUR ---
NUBIA PAGED, DR.SAM Valentin [employer] GUIDANCE COUNSELOR
[2017-04-30 18:13] LABS: RBC,URINE 0-2 /HPF (0-2); WBC,URINE 2-3/HPF /HPF (0-3)
[2017-04-30 18:14] LABS: BACTERIA,URINE Many /HPF (None Seen); SQUAMOUS EPITHELIAL CELL,UR Rare /HPF (None Seen)
--- NOTE | 2017-04-30 19:12 | NUR ---
NUBIA PAGED, SUPERVISOR ELECTRONICS ASSEMBLY
--- NOTE | 2017-04-30 19:31 | NUR ---
[facility] 110
--- NOTE | 2017-04-30 19:37 | NUR ---
TRANSFERRED PATIENT TO [facility] FLOOR VIA ALS PROTOCOL BY HARRY ARMSTRONG. NO INCIDENT NOTED. ENDORSED TO [facility] PRISCILLA BUNCH.
--- NOTE | 2017-04-30 20:00 | NUR ---
AUDIOVISUAL AIDS TECHNICIAN NOTES PATIENT IS ADMITTED TO [facility], BED 109. RECEIVED PATIENT VIA GURNEY. PATIENT IS ALERT AND ORIENTED X1 WITH DIFFICULTY SPEAKING, ATTEMPTS TO COMMUNICATE WITH UNCLEAR WORDS. DIFFICULTY IN HEARING NOTED. SON OF PATIENT AT BED SIDE. PATIENT IS ABLE TO FOLLOW SIMPLE INSTRUCTIONS. NO SIGNS OF LABORED BREATHING ON ROOM AIR. INITIAL ADMISSION ASSESSMENT DONE. CALL LIGHT WITHIN REACH. ORIENTED PATIENT WITH STAFF AND THE UNIT. EDUCATED PATIENT WITH AND SON RELATED TO DISEASE PROCESS. NOTIFIED DR ALEXANDER. SAFETY MEASURES PROVIDED.
[2017-04-30] MEDS ORDERED: LORAZEPAM 0.5 MG TABLET PO PRN (21:00)
[2017-04-30] MEDS ORDERED: MAGNESIUM HYDROXIDE 30 ML UDC PO PRN (21:30)
[2017-04-30] MEDS ORDERED: ONDANSETRON HCL/PF 4 MG/2 ML VIAL IVP PRN (21:30)
[2017-04-30] MEDS ORDERED: ACETAMINOPHEN 325 MG TABLET PO PRN (21:30)
[2017-04-30] MEDS ORDERED: Z GUARD REMEDY 2 OZ OINT TP PRN (21:30)
[2017-04-30] MEDS: TRAZODONE 50 MG TABLET PO SCH (22:00)
[2017-04-30] MEDS: SIMVASTATIN 40 MG TABLET PO SCH (22:00)
[2017-04-30] MEDS: LATANOPROST EYE DROP 0.005% 2.5 ML BOTTLE OP SCH (23:59)
[2017-05-01] VITALS: BP 181/76
[2017-05-01] MEDS: BLOOD SUGAR DIAGNOSTIC 1 EACH STRIP IN SCH ×5 (00:02→21:25)
[2017-05-01 04:00] VITALS: BP 176/80
[2017-05-01 06:35] LABS: BASOPHILS % (AUTO) 0.5 % (0.0-2.0); EOSINOPHILS # (AUTO) 0.2 /CMM (0.0-0.7); EOSINOPHILS % (AUTO) 3.8 % (0.0-6.0); HEMATOCRIT 33 % (33-45); LYMPHOCYTES # (AUTO) 1.6 /CMM (0.8-4.8); LYMPHOCYTES % (AUTO) 24.2 % (20.0-44.0); MEAN CORPUSCULAR HEMOGLOBIN 31 PG (26.0-33.0); MEAN CORPUSCULAR HGB CONC 34 g/dl (31.0-36.0); MEAN CORPUSCULAR VOLUME 90 fL (82-100); MONOCYTES # (AUTO) 0.7 /CMM (0.1-1.30); MONOCYTES % (AUTO) 11.2 % (2.0-12.0); NEUTROPHILS % (AUTO) 60.3 % (43.0-81.0); PLATELET COUNT (AUTO) 264 /CMM (150-450); RDW COEFFICIENT OF VARIATION 14.9 (11.5-15.0); RED BLOOD CELL COUNT(AUTO) 3.59 MIL/uL (4.0-5.2); WHITE BLOOD COUNT (AUTO) 6.6 K/uL (4.3-11.0)
[2017-05-01 07:08] LABS: ALANINE AMINOTRANSFERASE 12 U/L (12-78); ALBUMIN 3.2 g/dL (3.4-5.0); ALKALINE PHOSPHATASE 79 U/L (46-116); ASPARTATE AMINOTRANSFERASE 12 U/L (15-37); B-TYPE NATRIURETIC PEPTIDE 1428 PG/ML (0-125); BILIRUBIN,TOTAL 0.8 mg/dL (0.2-1.0); CALCIUM, SERUM 9.8 mg/dL (8.5-10.1); CARBON DIOXIDE 26 mmol/L (21-32); CHLORIDE 107 mmol/L (98-107); CREATININE 1.1 mg/dL (0.6-1.3); GLUCOSE 177 mg/dL (74-106); MAGNESIUM 1.9 mg/dL (1.8-2.4); PHOSPHORUS 3.2 mg/dL (2.5-4.9); SODIUM SERUM 141 mmol/L (136-145); TOTAL PROTEIN, SERUM 6.5 g/dL (6.4-8.2); UREA NITROGEN, BLOOD 14 mg/dL (7-18)
[2017-05-01 07:11] LABS: CHOLESTEROL 122 mg/dL (<200); HDL CHOLESTEROL 43 mg/dL (40-60); LDL 61 mg/dL (0-99); THYROID STIMULATING HORMONE 1.969 uIU/mL (0.358-3.74); TRIGLYCERIDES 104 mg/dL (30-150)
--- NOTE | 2017-05-01 07:15 | NUR ---
RN NOTES PT ASLEEP WELL ON BED NO ACUTE RESP DISTRESS./ NO CHANGE OF MENTAL STATUS STILL WITH UNCLEAR SPEECH BUT NOT CHANGE FROM THE ADMISSION. AOX1 ASKING FOR FOOD TO EAT. AFEBRILE VS STABLE. NEURO CHECK DONE VISUAL NO CHANGES NO SIGNS OF UNUSUAL WEAKNESS, REMAINED [place], NO DROOPING SHOWS WITH NO SIGNIFICANT CHANGES NOTED. INFORMED AND ENDORSED TO MORNING SHIFT TO FOLLOW UP TEXTILE EXAMINER REGARDING SON REQUEST TO TRANSFER PT TO [facility] SINCE DR. BORGES WHICH IS A PRIMARY PHYSICIAN AFFILIATED AT THE [facility]. KEPT PT CLEAN AND DRY. ENDORSED CONTINUITY OF CARE TO AM NURSE.
--- NOTE | 2017-05-01 07:45 | NUR ---
ICU/RN: INITIAL NOTES,AM RECEIVED REPORT FROM NIGHT NURSE. PT AWAKE,FOLLOWS SIMPLE COMMANDS. PT HAS SLURRED SPEECH, DIFFICULT TO UNDERSTAND. ON ROOM AIR, NO DISTRESS NOTED. PT SINUS ON TELE. PT ON DIAPER. SKIN INTACT. PT ON SOFT DIET. PIV PATENT AND INTACT, NO S/S OF INFECTION OR INFILTRATION NOTED. PT PENDING NEURO CONSULT, OT,PT, AND ST. WILL FOLLOW UP. 0745-BEDSIDE NURSING SWALLOW EVAL DONE, PT PASSED. FOR SAFETY PLACED ON MECHANICAL SOFT DIET. WILL FOLLOWUP.
[2017-05-01 08:00] VITALS: BP 175/69
[2017-05-01] MEDS: PANTOPRAZOLE 40 MG TABLET.DR PO SCH (08:54)
[2017-05-01] MEDS: SPIRONOLACTONE 25 MG TABLET PO SCH (08:55)
[2017-05-01] MEDS: LOSARTAN POTASSIUM 25 MG TABLET PO SCH (08:55)
[2017-05-01] MEDS: MINOXIDIL (2.5MG) 2.5 MG TABLET PO SCH ×3 (08:55→17:42)
[2017-05-01] MEDS: FUROSEMIDE 40 MG TABLET PO SCH (08:55)
[2017-05-01] MEDS: CLOPIDOGREL BISULFATE 75 MG TABLET PO SCH (08:55)
[2017-05-01] MEDS: FLUOXETINE HCL 20 MG CAPSULE PO SCH (08:58)
[2017-05-01] MEDS ORDERED: ENOXAPARIN SODIUM 80 MG/0.8 ML DISP.SYRIN SQ SCH (09:00)
[2017-05-01 12:00] VITALS: BP 157/74
--- NOTE | 2017-05-01 15:00 | NUR ---
[facility]/RN: PHYSICAL THERAPY AT BEDSIDE, PT OUT OF BED AND WALKED 6 FEET WITH EMELI WALKER, MOD ASSIST. PT WILL CONTINUE TO BE SEEN BY PHYSICAL THERAPY.
[2017-05-01 16:00] VITALS: BP 133/71
--- NOTE | 2017-05-01 18:46 | NUR ---
ICU/RN ENDING NOTES,AM REPORT WILL BE ENDORSED TO NIGHT NURSE FOR CONTINUATION OF CARE. PT ON ROOM AIR, NO ACUTE DISTRESS NOTED. PT SINUS ON TELE. PT CONTINUES TO HAVE SLURRED SPEECH, DYSPHASIC/APHASIC. ALL NEEDS MET, SAFETY MEASURES TAKEN, BED IN LOW POSITION, SIDE RAILS UP, CALL LIGHT WITHIN REACH.
--- NOTE | 2017-05-01 19:20 | NUR ---
RN NOTES RECEIVED PT AWAKE ON BED FAMILY AT BEDSIDE. PT IS AOX 1-2 VERBALIZED NEEDS WITH UNCLEAR WORDS. NO ACUTE RESP DISTRESS. AFEBRILE. TELE MONITOR REVEALS SR HR 104. BUE AND BLE ABLE TO ELEVATE WITHOUT UNUSUAL WEAKNESS NOTED. NO FACIAL DROOPING SHOWS ABLE TO FOLLOW COMMAND BUT HEARD OF HEARING. IV SITE ON LEFT HAND G 22 INTACT AND PATENT. PLAN OF CARE PROVIDED TO FAMILY AWARE REGARDING PT CONDITION. INCONTINENT CARE RENDERED. KEPT PT CLEAN AND DRY REPOSITIONED PT COMFORTABLE. WILL CLOSELY MONITOR.
[2017-05-01 20:00] VITALS: BP 141/75
[2017-05-01] MEDS: SIMVASTATIN 40 MG TABLET PO SCH (21:26)
[2017-05-01] MEDS: TRAZODONE 50 MG TABLET PO SCH (21:26)
[2017-05-01] MEDS: LATANOPROST EYE DROP 0.005% 2.5 ML BOTTLE OP SCH (21:28)
[2017-05-02] VITALS (7 sets, daily range): BP systolic 108–141; BP diastolic 51–71
--- NOTE | 2017-05-02 06:44 | NUR ---
RN NOTES PT ASLEEP WELL ON BED. EASILY AROUSABLE. BREATHING EVEN AND UNLABORED. SATING 97% IN ROOM AIR. REMAINED SR HR 78 ON TELE MONITOR. DENIES CHEST PAIN OR ANY KIND OF BODY ACHES. AFEBRILE. NO SIGNIFICANT CHANGE OF CONDITION THROUGHOUT THE SHIFT. NO FACIAL DROOPING, NO UNUSUAL WEAKNESS. ABLE TO MOVE BUE AND BLE , VS REMAINED IN STABLE CONDITION. LAST VS TAKEN WAS 118/57 HR 74. INCONTINENT CARE PROVIDED. ALL DUE MEDICINE TOLERATED WELL. PT CLEAN AND DRY. WILL ENDORSED CONTINUITY OF CARE TO AM NURSE.
[2017-05-02 06:49] LABS: BASOPHILS % (AUTO) 0.6 % (0.0-2.0); EOSINOPHILS # (AUTO) 0.2 /CMM (0.0-0.7); EOSINOPHILS % (AUTO) 3.4 % (0.0-6.0); HEMATOCRIT 32 % (33-45); HEMOGLOBIN 10.7 g/dL (11.5-14.8); LYMPHOCYTES # (AUTO) 1.6 /CMM (0.8-4.8); LYMPHOCYTES % (AUTO) 23.7 % (20.0-44.0); MEAN CORPUSCULAR HEMOGLOBIN 31 PG (26.0-33.0); MEAN CORPUSCULAR HGB CONC 33 g/dl (31.0-36.0); MEAN CORPUSCULAR VOLUME 92 fL (82-100); MONOCYTES # (AUTO) 0.8 /CMM (0.1-1.30); MONOCYTES % (AUTO) 11.5 % (2.0-12.0); NEUTROPHILS % (AUTO) 60.8 % (43.0-81.0); PLATELET COUNT (AUTO) 267 /CMM (150-450); RDW COEFFICIENT OF VARIATION 14.3 (11.5-15.0); RED BLOOD CELL COUNT(AUTO) 3.46 MIL/uL (4.0-5.2); WHITE BLOOD COUNT (AUTO) 6.6 K/uL (4.3-11.0)
[2017-05-02 07:09] LABS: CALCIUM, SERUM 9.4 mg/dL (8.5-10.1); CARBON DIOXIDE 25 mmol/L (21-32); CHLORIDE 104 mmol/L (98-107); CREATININE 1.4 mg/dL (0.6-1.3); GLUCOSE 196 mg/dL (74-106); SODIUM SERUM 138 mmol/L (136-145); UREA NITROGEN, BLOOD 18 mg/dL (7-18)
--- NOTE | 2017-05-02 07:30 | NUR ---
RN [facility] RECEIVED PATIENT AWAKE ON BED ALERT ORIENTED X 1 AFEBRILE NO FACIAL ASYMMETRY SEEN GARBLED WORDS NOTED, CAN ONLY ANSWER YES AND NO WEAKNESS NOTED OVER UPPER EXTREMITIES PLACED BED ON LOW FOWLERS POSITION NOTED HIGH BLOOD SUGAR
[2017-05-02] MEDS: BLOOD SUGAR DIAGNOSTIC 1 EACH STRIP IN SCH ×4 (08:57→22:10)
[2017-05-02] MEDS: FUROSEMIDE 40 MG TABLET PO SCH (08:58)
[2017-05-02] MEDS: SPIRONOLACTONE 25 MG TABLET PO SCH (08:58)
[2017-05-02] MEDS: MINOXIDIL (2.5MG) 2.5 MG TABLET PO SCH ×3 (08:59→17:53)
[2017-05-02] MEDS: LOSARTAN POTASSIUM 25 MG TABLET PO SCH (08:59)
[2017-05-02] MEDS: FLUOXETINE HCL 20 MG CAPSULE PO SCH (09:00)
[2017-05-02] MEDS: CLOPIDOGREL BISULFATE 75 MG TABLET PO SCH (09:00)
[2017-05-02] MEDS: PANTOPRAZOLE 40 MG TABLET.DR PO SCH (09:06)
--- NOTE | 2017-05-02 19:30 | NUR ---
COMMERCIAL REAL ESTATE PARALEGAL OPENING NOTES RECEIVED PT FROM PREVIOUS SHIFT. PATIENT IS ALERT AND AWAKE, ORIENTED X 2 WITH CONFUSION. NO SIGNS OF DISTRESS OR SOB. IV LINE ON LEFT WRIST IS PATENT AND INTACT WITH NO SIGNS OF PHLEBITIS OR INFILTRATION. CALL LIGHT WITHIN REACH. ABLE TO MOVE ALL EXTREMITIES WITH MILD GENERALIZED WEAKNESS ON ALL 4 EXTREMITIES. SAFETY MEASURES PROVIDED. BED ALARM ON.
[2017-05-02] MEDS: TRAZODONE 50 MG TABLET PO SCH (21:33)
[2017-05-02] MEDS: SIMVASTATIN 40 MG TABLET PO SCH (21:33)
[2017-05-02] MEDS: LATANOPROST EYE DROP 0.005% 2.5 ML BOTTLE OP SCH (21:34)
--- NOTE | 2017-05-02 22:00 | NUR ---
PHYSICAL THERAPY RESIDENT NOTES BLOOD SUGAR FOR 10PM IS 242MG/DL - NO COVERAGE GIVEN PER SLIDING SCALE . WILL CHECK AGAIN IN AM
[2017-05-03] VITALS: BP 117/59
[2017-05-03 04:00] VITALS: BP 116/52
--- NOTE | 2017-05-03 06:40 | NUR ---
DIRECTOR LOAN CLOSING NOTES PATIENT IS ASLEEP. AROUSES WITH VERBAL, AND TACTILE STIMULI. NO SIGNS OF DISTRESS OR SOB NOTED. CALL LIGHT WITHIN REACH. SAFETY MEASURES PROVIDED. KEPT CLEAN AND COMFORTABLE.
--- NOTE | 2017-05-03 07:12 | NUR ---
RN INITIAL NOTES: REC'D PT ON BED, NOT IN ANY DISTRESS, A/O X1, DENIES ANY PAIN & DISCOMFORT. ON ROOM AIR, NO SOB. ON TELEMONITOR, SR. HAS L HAND G22, SL, PATENT & INTACT W/ NO S/SX OF INFECTION/INFILTRATION NOTED. PROVIDED COMFORT & SAFETY MEASURES. BED KEPT LOW & IN LOCKED POS. CALL LIGHT PLACED W/IN REACH. WILL CONTINUE TO MONITOR AND ATTEND PT NEEDS. 0730h BLOOD SUGAR RESULT 212 MG/DL RELAYED TO HARRY ARMSTRONG. NO NEW ORDER AT THIS TIME, NUTRITION INTERN TO SEE PT FIRST.
[2017-05-03] MEDS: BLOOD SUGAR DIAGNOSTIC 1 EACH STRIP IN SCH ×4 (07:59→22:13)
[2017-05-03 08:00] VITALS: BP 141/68
[2017-05-03] MEDS: SPIRONOLACTONE 25 MG TABLET PO SCH (08:29)
[2017-05-03] MEDS: FLUOXETINE HCL 20 MG CAPSULE PO SCH (08:29)
[2017-05-03] MEDS: FUROSEMIDE 40 MG TABLET PO SCH (08:29)
[2017-05-03] MEDS: MINOXIDIL (2.5MG) 2.5 MG TABLET PO SCH ×3 (08:29→17:37)
[2017-05-03] MEDS: LOSARTAN POTASSIUM 25 MG TABLET PO SCH (08:29)
[2017-05-03] MEDS: CLOPIDOGREL BISULFATE 75 MG TABLET PO SCH (08:29)
[2017-05-03] MEDS: PANTOPRAZOLE 40 MG TABLET.DR PO SCH (08:29)
[2017-05-03 12:00] VITALS: BP 123/68
[2017-05-03 16:00] VITALS: BP 112/60
[2017-05-03] MEDS ORDERED: DEXTROSE 50%-WATER 50 ML DISP.SYRIN IV PRN (16:30)
--- NOTE | 2017-05-03 17:00 | NUR ---
RN NOTES: PT SEEN & EXAMINED BY HARRY ARMSTRONG W/ ORDERS MADE & CARRIED OUT.
[2017-05-03] MEDS: INSULIN REGULAR, HUMAN 100 UNIT/ML 3 ML VIAL SQ PRN ×2 (17:41→22:16)
--- NOTE | 2017-05-03 18:37 | NUR ---
RN CLOSING NOTES: NO ACUTE CHANGES NOTED W/IN SHIFT. PT TOLERATED ROOM AIR, NO SOB. PT OFF TELEMONITOR. L HAND G22, SL, KEPT PATENT & INTACT W/ NO S/SX OF INFECTION/INFILTRATION NOTED. KEPT WELL RESTED. NEEDS ATTENDED. BED KEPT LOCKED AND IN LOW POS. CALL LIGHT PLACED W/IN REACH. WILL ENDORSE TO PM RN FOR JULIO C.
[2017-05-03 20:00] VITALS: BP 128/63
--- NOTE | 2017-05-03 20:00 | NUR ---
RN INITIAL NOTES: PT RESTING IN BED AT HIS TIME, L HAND G22 SL, KEPT PATENT & INTACT W/ NO S/SX OF INFECTION/INFILTRATION NOTED. BED IN LOCKED AND IN LOW POS. CALL LIGHT PLACED W/IN REACH. RN WILL CONTINUE TO MONITOR PT.
[2017-05-03] MEDS: SIMVASTATIN 40 MG TABLET PO SCH (22:17)
[2017-05-03] MEDS: TRAZODONE 50 MG TABLET PO SCH (22:17)
[2017-05-03] MEDS: LATANOPROST EYE DROP 0.005% 2.5 ML BOTTLE OP SCH (22:19)
[2017-05-04 04:00] VITALS: BP 128/63
--- NOTE | 2017-05-04 06:00 | NUR ---
RN CLOSING NOTES: NO SIGNIFICANT CHANCES OVER NIGHT. PT RESTING IN BED AT HIS TIME. L HAND G22 SL, KEPT PATENT & INTACT W/ NO S/SX OF INFECTION/INFILTRATION NOTED. BED IN LOCKED AND IN LOW POS. CALL LIGHT PLACED W/IN REACH. RN WILL ENDORSE TO AM RN.
--- NOTE | 2017-05-04 07:35 | NUR ---
RN OPENING NOTES RECEIVED PT. IN BED SLEEPING. BREATHING UNALBORED AND EVENLY ON ROOM AIR. NO S/S OF ACUTE DISTRESS. IV ON LEFT WRIST IS INTACT. BED IS IN LOWEST AND LOCKED POSITION, 2 SIDE RAILS UP, AND CALL LIGHT WITHIN REACH. ALL NEEDS MET. WILL CONTINUE TO ASSESS AND MONITOR.
[2017-05-04 08:00] VITALS: BP 135/61
[2017-05-04] MEDS: BLOOD SUGAR DIAGNOSTIC 1 EACH STRIP IN SCH ×2 (10:51→12:34)
[2017-05-04] MEDS: CLOPIDOGREL BISULFATE 75 MG TABLET PO SCH (10:55)
[2017-05-04] MEDS: FUROSEMIDE 40 MG TABLET PO SCH (10:55)
[2017-05-04] MEDS: MINOXIDIL (2.5MG) 2.5 MG TABLET PO SCH ×3 (10:56→17:16)
[2017-05-04] MEDS: LOSARTAN POTASSIUM 25 MG TABLET PO SCH (10:57)
[2017-05-04] MEDS: PANTOPRAZOLE 40 MG TABLET.DR PO SCH (10:57)
[2017-05-04] MEDS: SPIRONOLACTONE 25 MG TABLET PO SCH (10:57)
[2017-05-04] MEDS: FLUOXETINE HCL 20 MG CAPSULE PO SCH (11:02)
[2017-05-04] MEDS: INSULIN REGULAR, HUMAN 100 UNIT/ML 3 ML VIAL SQ PRN ×2 (11:05→12:41)
[2017-05-04 12:00] VITALS: BP 117/64
[2017-05-04 16:00] VITALS: BP 129/78
[2017-05-04 16:05] VITALS: BP 129/78
--- NOTE | 2017-05-04 17:00 | NUR ---
RN NOTES DISCHARGE REPORT WAS GIVEN TO PRISCILLA RANKIN FROM [facility]. ALL QUESTIONS ANSWERED.
[2017-05-04 17:16] VITALS: BP 129/78
--- NOTE | 2017-05-04 17:28 | NUR ---
CUSTOMER SERVICE PROFESSIONAL NOTES PT. WAS DISCHARGED TO [facility] IN MEDICALLY STABLE CONDITION WITH AMBULANCE CREW. PROVIDED DISCHARGE PACKET TO AMBULANCE.
== END 2017-05-04 17:23 | DRG 64 ==
LOC: ER 15:46 → UNDOADMIN 19:03 → TELE-TD 19:03 → TRANSITION 19:03 → TELE-TD 20:13 → TELE1 05-02 14:02 → MEDSG1 05-03 16:27
PROVIDERS: ADMIT Internal Medicine; ATTEND Internal Medicine
DX: I63.512 Cerebral infarction due to unspecified occlusion or stenosis of left middle cerebral artery (principal); G93.40 Encephalopathy, unspecified; I50.33 Acute on chronic diastolic (congestive) heart failure; D68.59 Other primary thrombophilia; E11.22 Type 2 diabetes mellitus with diabetic chronic kidney disease; E11.51 Type 2 diabetes mellitus with diabetic peripheral angiopathy without gangrene; N18.3 Chronic kidney disease, stage 3 (moderate); E11.65 Type 2 diabetes mellitus with hyperglycemia; I13.0 Hypertensive heart and chronic kidney disease with heart failure and stage 1 through stage 4 chronic kidney disease, or unspecified chronic kidney disease; I50.32 Chronic diastolic (congestive) heart failure; I69.351 Hemiplegia and hemiparesis following cerebral infarction affecting right dominant side; E78.5 Hyperlipidemia, unspecified; F41.9 Anxiety disorder, unspecified; I25.10 Atherosclerotic heart disease of native coronary artery without angina pectoris; D64.9 Anemia, unspecified; F01.50 Vascular dementia, unspecified severity, without behavioral disturbance, psychotic disturbance, mood disturbance, and anxiety; I72.8 Aneurysm of other specified arteries; D63.8 Anemia in other chronic diseases classified elsewhere; H40.9 Unspecified glaucoma; I69.320 Aphasia following cerebral infarction; Z79.84 Long term (current) use of oral hypoglycemic drugs; I99.8 Other disorder of circulatory system
CPT/HCPCS: 36415; 70450-TC; 70496-TC; 70498-TC; 71010-TC; 80048-TC; 80053-TC; 80061-TC; 81000-TC; 82962-TC; 83735-TC; 83880; 84100-TC; 84443-TC; 84484-TC; 85025-TC; 85730-TC; 87081-TC; 87086-TC; 92507-TC; 92521; 92526; 92611-TC; 93307-TC; 97110-TC; 97112-TC; 97116-TC; 97530-TC; A4606; J1650; J1815; J7050; Q9967; Z7610